=== PATIENT | male | born 1960 | race Caucasian/White ===

== ENCOUNTER 2018-08-03 11:57 | Observation (INO) | payer MEDICARE ==
[~2018-08-03] VITALS: Ht 180.3 cm; Wt 90.0 kg
[~2018-08-03 11:57] MED LIST: ALBU8.5H5 INH; ALPR-475 PO; ALPR1TAB2 PO; BACL-19 PO; BECL8.7A7 INH; BUSP30TA PO; CEFD300C37 PO; CLON0.2T PO; GABA400C PO; GABA600T2 PO; GABA800T2 PO; HYDR-3240 PO; HYDR-3245 PO; HYDR-3307 PO; INDO25CA5 PO; LIDOCAINE CREAM TP; LISI-170 PO; LISI-420 PO; LISI5TAB7 PO; METO50TA82 PO; METR500T PO; MULT-26 PO; ONDA4TAB10 PO; ONDA4TAB7 PO; PANT40TA5 PO; PARO40TA3 PO; PROP20TA PO; PROP40SO PO; PROP40TA PO; PROPANOLOL PO; SUCR1TAB PO; THIA100T10 PO
[2018-08-03 12:18] LABS: BASOPHILS # (AUTO) 0.05 x10^3/uL (0-0.1); BASOPHILS % (AUTO) 1 % (0-1); EOSINOPHILS # (AUTO) 0.03 x10^3/uL (0-0.4); EOSINOPHILS % (AUTO) 1 % (1-7); LYMPHOCYTES # (AUTO) 1.79 x10^3/uL (1-3.4); LYMPHOCYTES % (AUTO) 29 % (22-44); MD NO; MEAN CORPUSCULAR HEMOGLOBIN 32.9 pg (27.5-34.5); MEAN CORPUSCULAR VOLUME 96.7 fL (81-97); MEAN PLATELET VOLUME 7.7 fL (7.4-10.4); MONOCYTES # (AUTO) 0.39 x10^3/uL (0.2-0.8); MONOCYTES % (AUTO) 6 % (2-9); NEUTROPHILS # (AUTO) 3.99 x10^3/uL (1.8-6.8); NEUTROPHILS % (AUTO) 64 % (42-75); PLATELET COUNT 307 x10^3/uL (130-400); RED CELL DISTRIBUTION WIDTH 13.4 % (9.4-14.8)
[2018-08-03 12:27] LABS: ALANINE AMINOTRANSFERASE 24 U/L (12-78); ALBUMIN 3.7 g/dL (3.4-5.0); ANION GAP 9 mmol/L (5-15); CALCIUM 8.3 mg/dL (8.5-10.1); CHLORIDE 107 mmol/L (98-107); CREATININE 0.77 mg/dL (0.7-1.3)
[2018-08-03 12:32] LABS: ALKALINE PHOSPHATASE 76 U/L (45-117); BILIRUBIN,TOTAL 0.5 mg/dL (0.2-1.0); TOTAL PROTEIN 7.4 g/dL (6.4-8.2); TROPONIN I < 0.015 ng/mL (0.000-0.045)
[2018-08-03] MEDS ORDERED: BUDE10.2 PO (12:35)
[2018-08-03] MEDS: NITROGLYCERIN SINGLE TAB 0.4 MG SL PRN ×2 (12:50→12:51)
[2018-08-03] MEDS ORDERED: LORazepam 2 MG/ML, 1ML IVPush PRN (13:00)
[2018-08-03] MEDS ORDERED: NITROGLYCERIN 0.4 MG BOTTLE (25 TABS) SL PRN (13:30)
[2018-08-03] MEDS ORDERED: LABETALOL 5MG/ML, 20ML IVPush PRN (13:30)
[2018-08-03] MEDS ORDERED: BISACODYL 10 MG SUPP PR PRN (13:30)
[2018-08-03] MEDS ORDERED: POLYETHYLENE GLYCOL 17 GM PACKET PO PRN (13:30)
[2018-08-03] MEDS ORDERED: DOCUSATE 100 MG CAPSULE PO PRN (13:30)
[2018-08-03] MEDS ORDERED: ONDANSETRON 2MG/ML, 2ML IVPush PRN (13:30)
[2018-08-03] MEDS ORDERED: ACETAMINOPHEN 325 MG TABLET PO PRN (13:30)
[2018-08-03 13:35] VITALS: BP 145/75
[2018-08-03] MEDS ORDERED: ONDANSETRON ODT 4 MG PO PRN (14:00)
[2018-08-03] MEDS ORDERED: ALBUTEROL SULFATE 2.5 MG/3 ML NPPB PRN (14:00)
[2018-08-03] MEDS: ENOXAPARIN 40 MG/0.4 ML SQ SCH (14:03)
[2018-08-03] MEDS: FLUTICASONE/VILANTEROL 200-25MCG/INH INH SCH (15:37)
[2018-08-03] MEDS: GABAPENTIN 400 MG CAPSULE PO SCH ×2 (15:37→20:34)
[2018-08-03 15:52] LABS: TROPONIN I < 0.015 ng/mL (0.000-0.045)
[2018-08-03 20:00] VITALS: BP 150/86
[2018-08-03] MEDS: PROPRANOLOL 20 MG TABLET PO SCH (20:34)
[2018-08-03] MEDS: LORazepam 2 MG/ML, 1ML IVPush PRN (20:34)
[2018-08-03] MEDS: SODIUM CHLORIDE FLUSH 10ML SYR IVF SCH (20:34)
[2018-08-03 22:44] LABS: TROPONIN I < 0.015 ng/mL (0.000-0.045)
[2018-08-04 02:00] VITALS: BP 131/72
[2018-08-04] MEDS: LORazepam 2 MG/ML, 1ML IVPush PRN ×2 (02:15→07:50)
[2018-08-04] MEDS ORDERED: ASPIRIN 325 MG TABLET EC PO SCH (06:00)
[2018-08-04 06:27] LABS: CHOL/HDL RATIO 2.7; LDL/HDL RATIO 1.5 (0.5-3.0)
[2018-08-04 07:22] VITALS: BP 145/78
[2018-08-04] MEDS: FLUTICASONE/VILANTEROL 200-25MCG/INH INH SCH (07:30)
[2018-08-04] MEDS: GABAPENTIN 400 MG CAPSULE PO SCH ×2 (07:31→16:03)
[2018-08-04] MEDS: SODIUM CHLORIDE FLUSH 10ML SYR IVF SCH (07:33)
[2018-08-04 07:46] VITALS: BP 128/82
[2018-08-04] MEDS ORDERED: REGADENOSON 0.4 MG/5 ML SYRINGE ONE (08:42)
[2018-08-04] MEDS ORDERED: THIAMINE 100MG TABLET PO SCH (09:00)
[2018-08-04] MEDS ORDERED: LISINOPRIL 20 MG TABLET PO SCH (09:00)
[2018-08-04] MEDS: PROPRANOLOL 20 MG TABLET PO SCH (11:39)
[2018-08-04 12:36] VITALS: BP 128/80
[2018-08-04] MEDS ORDERED: ALBUTEROL/IPRATROPIUM 2.5MG/0.5MG, 3 ML ONE (12:51)
[2018-08-04] MEDS ORDERED: GUAIFENESIN ER 600 MG TABLET PO SCH (13:30)
[2018-08-04] MEDS: ENOXAPARIN 40 MG/0.4 ML SQ SCH (13:59)
[2018-08-04] MEDS ORDERED: ALBUTEROL/IPRATROPIUM 2.5MG/0.5MG, 3 ML NPPB SCH (15:00)
[2018-08-04] MEDS ORDERED: GUAI600T31 PO (15:18)
== END 2018-08-04 16:35 | disposition home or self-care (01) ==
LOC: ED 12:29 → INTOOBSV 12:30 → EDIP 12:30 → ED 12:46 → 5SO 13:30 → DCLOUNGE 08-04 16:20
PROVIDERS: ADMIT Hospitalist; ATTEND Hospitalist
DX: R07.89 Other chest pain (principal); E11.9 Type 2 diabetes mellitus without complications; I10 Essential (primary) hypertension; I25.10 Atherosclerotic heart disease of native coronary artery without angina pectoris; I25.2 Old myocardial infarction; J44.9 Chronic obstructive pulmonary disease, unspecified; K21.9 Gastro-esophageal reflux disease without esophagitis; K76.0 Fatty (change of) liver, not elsewhere classified; K86.1 Other chronic pancreatitis; F17.210 Nicotine dependence, cigarettes, uncomplicated; Z86.73 Personal history of transient ischemic attack (TIA), and cerebral infarction without residual deficits
CPT/HCPCS: 36415; 71045; 78452; 80053; 80061; 83690; 84484; 85025; 85379; 93005; 93017; 94640; 96372; 96374; 96376; 99285; A9502; C9898; G0378; J1650; J2060; J2785; J7620; Q0162

== ENCOUNTER 2018-08-05 21:18 | Emergency (ER) | payer MEDICARE ==
[~2018-08-05] VITALS: Ht 185.4 cm; Wt 77.0 kg
[~2018-08-05 21:18] MED LIST changes: +BUDE10.2 PO; +GUAI600T31 PO
[2018-08-05 22:22] VITALS: BP 106/74
[2018-08-05] MEDS ORDERED: SODIUM CHLORIDE 0.9% 1,000 ML IV ONE (22:29)
[2018-08-05] MEDS ORDERED: SODIUM CHLORIDE FLUSH 10ML SYR IVF ONE (22:30)
[2018-08-05] MEDS ORDERED: SODIUM CHLORIDE 0.9% 1,000ML IVBOLUS ONE (22:30)
[2018-08-05] MEDS ORDERED: LORazepam 2 MG/ML, 1ML IVPush ONE (22:30)
[2018-08-05] MEDS ORDERED: ASPIRIN 81 MG TABLET CHEW PO ONE (22:30)
[2018-08-05] MEDS ORDERED: LORazepam 2 MG/ML, 1ML ONE (22:39)
[2018-08-05] MEDS ORDERED: ASPIRIN 81 MG TABLET CHEW ONE (22:39)
[2018-08-05 22:55] LABS: BASOPHILS # (AUTO) 0.03 x10^3/uL (0-0.1); BASOPHILS % (AUTO) 1 % (0-1); EOSINOPHILS # (AUTO) 0.16 x10^3/uL (0-0.4); EOSINOPHILS % (AUTO) 3 % (1-7); LYMPHOCYTES % (AUTO) 34 % (22-44); MD NO; MEAN CORPUSCULAR HEMOGLOBIN 33.2 pg (27.5-34.5); MEAN CORPUSCULAR HGB CONC 34.8 g/dL (33.2-36.2); MEAN CORPUSCULAR VOLUME 95.4 fL (81-97); MEAN PLATELET VOLUME 7.9 fL (7.4-10.4); MONOCYTES # (AUTO) 0.43 x10^3/uL (0.2-0.8); MONOCYTES % (AUTO) 8 % (2-9); NEUTROPHILS % (AUTO) 55 % (42-75); PLATELET COUNT 263 x10^3/uL (130-400); RED BLOOD COUNT 4.28 x10^6/uL (4.38-5.82); RED CELL DISTRIBUTION WIDTH 13.2 % (9.4-14.8)
[2018-08-05 23:03] LABS: INTERNATIONAL NORMALIZED RATIO 0.9 (0.93-1.1); PROTHROMBIN TIME 9.4 Seconds (9.6-11.5)
[2018-08-05 23:04] LABS: ALANINE AMINOTRANSFERASE 23 U/L (12-78); ALBUMIN 3.5 g/dL (3.4-5.0); ANION GAP 8 mmol/L (5-15); CALCIUM 8.5 mg/dL (8.5-10.1); CHLORIDE 106 mmol/L (98-107); CREATININE 1.06 mg/dL (0.7-1.3)
[2018-08-05 23:08] LABS: ALKALINE PHOSPHATASE 79 U/L (45-117); TOTAL PROTEIN 7.4 g/dL (6.4-8.2); TROPONIN I < 0.015 ng/mL (0.000-0.045)
[2018-08-05 23:29] LABS: BILIRUBIN,TOTAL 0.1 mg/dL (0.2-1.0)
== END 2018-08-05 23:51 | disposition home or self-care (01) ==
LOC: ED 22:13
DX: R07.89 Other chest pain (principal); F10.20 Alcohol dependence, uncomplicated; I10 Essential (primary) hypertension; E11.9 Type 2 diabetes mellitus without complications; I25.2 Old myocardial infarction; F17.200 Nicotine dependence, unspecified, uncomplicated; Z86.73 Personal history of transient ischemic attack (TIA), and cerebral infarction without residual deficits
CPT/HCPCS: 36415; 71045; 80053; 80307; 83690; 83735; 84484; 85025; 85610; 85730; 93005; 96374; 99285; J2060; J7030

== ENCOUNTER 2018-10-03 23:06 | Emergency (ER) | payer MEDICARE ==
[~2018-10-03] VITALS: Ht 177.8 cm; Wt 102.0 kg
[2018-10-03] MEDS ORDERED: ACETAMINOPHEN 325 MG TABLET PO ONE (23:30)
[2018-10-03] MEDS ORDERED: MAALOX/HYOSCYAMINE/LIDOCAINE 45 ML BTL PO ONE (23:30)
[2018-10-03 23:43] VITALS: BP 108/77
[2018-10-03 23:43] LABS: ANION GAP 11 mmol/L (5-15); CALCIUM 8.5 mg/dL (8.5-10.1); CHLORIDE 104 mmol/L (98-107)
[2018-10-03 23:44] LABS: BASOPHILS # (AUTO) 0.04 x10^3/uL (0-0.1); BASOPHILS % (AUTO) 1 % (0-1); EOSINOPHILS # (AUTO) 0.08 x10^3/uL (0-0.4); EOSINOPHILS % (AUTO) 2 % (1-7); LYMPHOCYTES # (AUTO) 1.65 x10^3/uL (1-3.4); LYMPHOCYTES % (AUTO) 35 % (22-44); MD NO; MEAN CORPUSCULAR HEMOGLOBIN 33.1 pg (27.5-34.5); MEAN CORPUSCULAR HGB CONC 33.6 g/dL (33.2-36.2); MEAN CORPUSCULAR VOLUME 98.4 fL (81-97); MEAN PLATELET VOLUME 8.5 fL (7.4-10.4); MONOCYTES # (AUTO) 0.34 x10^3/uL (0.2-0.8); MONOCYTES % (AUTO) 7 % (2-9); NEUTROPHILS # (AUTO) 2.66 x10^3/uL (1.8-6.8); NEUTROPHILS % (AUTO) 56 % (42-75); PLATELET COUNT 214 x10^3/uL (130-400); RED BLOOD COUNT 4.75 x10^6/uL (4.38-5.82); RED CELL DISTRIBUTION WIDTH 14.6 % (9.4-14.8)
[2018-10-03 23:48] LABS: TROPONIN I < 0.015 ng/mL (0.000-0.045)
[2018-10-03] MEDS ORDERED: ACETAMINOPHEN 500 MG TABLET ONE (23:53)
[2018-10-03] MEDS ORDERED: MAALOX/HYOSCYAMINE/LIDOCAINE 45 ML BTL ONE (23:53)
== END 2018-10-04 00:17 | disposition home or self-care (01) ==
LOC: ED 23:43
DX: R07.89 Other chest pain (principal); F17.200 Nicotine dependence, unspecified, uncomplicated; E78.5 Hyperlipidemia, unspecified; I10 Essential (primary) hypertension; E11.9 Type 2 diabetes mellitus without complications; I25.2 Old myocardial infarction
CPT/HCPCS: 36415; 71045; 80048; 82040; 83690; 84484; 85025; 93005; 99285